=== PATIENT | female | born 1965 | race American Indian/Alaskan Native ===

== ENCOUNTER 2019-02-22 20:31 | Emergency (ER) | payer MEDICARE ==
--- NOTE | 2019-02-22 20:59 | Event Note ---
ED Screening Note ED Screening Note: pt presents with chronic back pain pt is seen by a pain management states her prescriptions will be ready this weekend on february 26 c/o lower back pain no new fall or injury no numbness or weakness, no bowel or bladder incontinence allergy: ibuprofen PMHx sarcoidosis This initial assessment/diagnostic orders/clinical plan/treatment(s) is/are subject to change based on patients health status, clinical progression and re- assessment by fellow clinical providers in the ED. Further treatment and workup at subsequent clinical providers discretion. Patient/guardian urged not to elope from the ED as their condition may be serious if not clinically assessed and managed. will d/c from triage for chronic back pain with meds
[2019-02-22] MEDS ORDERED: TYLENOL #3 PO ONE (21:01)
--- NOTE | 2019-02-22 21:01 | Emergency Department Report ---
ED Back Pain/Injury HPI - General Chief Complaint: Back Pain/Injury Stated Complaint: BACK AND SHOULDER PAIN Time Seen by Provider: 02/22/19 20:56 Source: patient Limitations: No Limitations - History of Present Illness Initial Comments: pt is a 53 yo female who presents to the ED with c/o chronic lower back pain. pt is seen by a pain management currently states her prescriptions will be ready tomorrow (02/23/19). pt is c/o lower back pain. she denies any new fall or injury, paresthesias, numbness or weakness, no bowel or bladder incontinence. allergy: ibuprofen. PMHx sarcoidosis. pt states she did not drive to the emergency department tonight. - Related Data Allergies Allergy/AdvReac Type Severity Reaction Status Date / Time ibuprofen [From Motrin] Allergy Unknown Verified 02/22/19 20:34 ED Review of Systems ROS: Stated complaint: BACK AND SHOULDER PAIN Other details as noted in HPI Comment: All other systems reviewed and negative ED Past Medical Hx - Past Medical History Previous Medical History?: Yes Additional medical history: Chronic Back Pain, Sacoiddosis - Surgical History Past Surgical History?: Yes Additional Surgical History: Right rotator cuff - Social History Smoking Status: Current Every Day Smoker Substance Use Type: None ED Physical Exam - General Limitations: No Limitations General appearance: alert, in no apparent distress - Head Head exam: Present: atraumatic, normocephalic - Eye Eye exam: Present: normal appearance - ENT ENT exam: Present: mucous membranes moist - Neck Neck exam: Present: normal inspection, full ROM. Absent: tenderness - Respiratory Respiratory exam: Present: normal lung sounds bilaterally. Absent: respiratory distress, wheezes, rales, rhonchi, stridor, accessory muscle use, decreased breath sounds, prolonged expiratory - Cardiovascular Cardiovascular Exam: Present: regular rate, normal rhythm, normal heart sounds. Absent: systolic murmur, diastolic murmur, rubs, gallop - Back Exam Back exam: Present: normal inspection, full ROM, paraspinal tenderness (bilateral lumbar paraspinal muscular TTP, no midline C-spine, T-spine, or L- spine tenderness, no step offs, no deformities). Absent: vertebral tenderness - Neurological Exam Neurological exam: Present: alert, oriented X3 - Psychiatric Psychiatric exam: Present: normal affect, normal mood - Skin Skin exam: Present: warm, dry, intact ED Course Vital Signs 02/22/19 02/22/19 20:47 22:20 Temperature 98.7 F 98 F Pulse Rate 101 H 89 Respiratory 18 18 Rate Blood Pressure 138/77 Blood Pressure 132/78 [Left] O2 Sat by Pulse 95 99 Oximetry ED Medical Decision Making - Medical Decision Making pt is a 53 yo female who presents to the ED with c/o chronic lower back pain. pt is seen by a pain management currently states her prescriptions will be ready tomorrow (02/23/19). pt is c/o lower back pain. she denies any new fall or injury, paresthesias, numbness or weakness, no bowel or bladder incontinence. allergy: ibuprofen. PMHx sarcoidosis. pt states she did not drive to the emergency department tonight. VSS. on exam: bilateral lumbar paraspinal muscular TTP, no midline C-spine, T-spine, or L-spine tenderness, no step offs, no deformities, no focal neuro deficts. pt states she takes percocet and muscle relaxers at home. pts pain treated while in the ED with tylenol with codeine and flexeril. advised pt to please continue to take your at home medications as prescribed by your pain specialist. follow up with a primary care doctor in the next 2-3 days. continue to see your pain specialist for your chronic back pain. return to the emergency room for any new or worsening symptoms. Critical care attestation.: If time is entered above; I have spent that time in minutes in the direct care of this critically ill patient, excluding procedure time. ED Disposition Clinical Impression: Low back pain Qualifiers: Chronicity: acute Back pain laterality: bilateral Sciatica presence: without sciatica Qualified Code(s): M54.5 - Low back pain Disposition: - TO HOME OR SELFCARE Is pt being admited?: No Does the pt Need Aspirin: No Condition: Stable Instructions: Chronic Back Pain (ED) Additional Instructions: please continue to take your at home medications as prescribed by your pain specialist. follow up with a primary care doctor in the next 2-3 days. continue to see your pain specialist for your chronic back pain. return to the emergency room for any new or worsening symptoms. Referrals: your, pain specialist [Other] - 2-3 Days Time of Disposition: 21:03 Print Language: [place]
[2019-02-22] MEDS ORDERED: FLEXERIL PO ONE (21:07)
[2019-02-22 23:04] VITALS: BP 132/78
== END 2019-02-22 22:25 | disposition home or self-care (01) ==
LOC: ED 20:31
DX: M54.5 Low back pain (principal); G89.29 Other chronic pain; F17.200 Nicotine dependence, unspecified, uncomplicated
CPT/HCPCS: 99282

== ENCOUNTER 2019-05-08 18:58 | Emergency (ER) | payer MEDICARE ==
[2019-05-08 19:46] VITALS: BP 151/85
== END 2019-05-08 20:38 | disposition left against medical advice (07) ==
LOC: ED 18:58
DX: M25.561 Pain in right knee (principal); M79.646 Pain in unspecified finger(s); Z53.21 Procedure and treatment not carried out due to patient leaving prior to being seen by health care provider